=== PATIENT | female | born 1950 | race Caucasian/White ===

== ENCOUNTER 2018-09-13 10:44 | Outpatient (REF) | payer MEDICARE, MEDICAID, SELFPAY ==
[2018-09-13 21:41] LABS: ALT 32 U/L (12-78); AST 22 U/L (15-37); Albumin 3.9 g/dL (3.4-5.0); Alkaline Phosphatase 63 U/L (46-116); BUN 12 mg/dL (7-18); Bilirubin, Total 0.4 mg/dL (0.2-1.0); CREATININE 0.83 mg/dL (0.55-1.02); Calcium 9.2 mg/dL (8.5-10.1); Chloride 100 mmol/L (98-107); Cholesterol 166 mg/dL (50-200); Glucose 83 mg/dL (70-100); HDL Cholesterol 44 mg/dL (40-60); LDL CHOLESTEROL 105 mg/dL (<100); Potassium 4.5 mmol/L (3.5-5.1); Sodium 136 mmol/L (136-145); Total Protein 6.6 g/dL (6.4-8.2); Triglyceride 83 mg/dL (30-150)
== END 2018-09-13 11:04 ==
LOC: NCHCN 10:44
PROVIDERS: PCP Family Medicine; Visit Provider Nurse Practitioner Family
DX: E78.5 Hyperlipidemia, unspecified (principal)
CPT/HCPCS: 80053; 80061; 83721

== ENCOUNTER 2018-10-18 15:12 | Outpatient (REF) | payer MEDICARE, MEDICAID, SELFPAY ==
[2018-10-18 22:15] LABS: Abs Immature Grans 0.01 k/cumm (0.0-0.09); Absolute Basophil Count 0.02 k/cumm (0.0-0.2); Absolute Eosinophil Count 0.06 k/cumm (0.0-0.7); Absolute Monocyte Count 0.53 k/cumm (0.11-0.7); Basophils % 0.3; Eosinophils % 0.8; HCT 40.6 % (36.0-46.0); HGB 13.5 g/dL (12.0-15.5); Immature Grans % 0.1; Lymphocytes % 32.8; Mean Corp. HGB Concentration 33.3 g/dL (32.0-36.0); Mean Corpuscular Hemoglobin 31.3 pg (27.0-33.0); Mean Corpuscular Volume 94.2 fL (80-95); Mean Platelet Volume 12.2 fL (8.0-11.0); Platelet Count 240 x1000/uL (130-400); RBC 4.31 m/cumm (4.00-5.20); RBC Distribution Width 12.4 % (11.7-14.6); White Blood Cell Count 7.62 k/cumm (4.4-10.8)
[2018-10-18 22:28] LABS: ALT 32 U/L (12-78); AST 22 U/L (15-37); Albumin 3.9 g/dL (3.4-5.0); Alkaline Phosphatase 67 U/L (46-116); BUN 11 mg/dL (7-18); Bilirubin, Total 0.3 mg/dL (0.2-1.0); CREATININE 1.04 mg/dL (0.55-1.02); Calcium 8.9 mg/dL (8.5-10.1); Chloride 101 mmol/L (98-107); Estimated GFR 53.02 (mL/min/1.73m2); Glucose 106 mg/dL (70-100); Potassium 4.1 mmol/L (3.5-5.1); Sodium 138 mmol/L (136-145); TSH 4.18 uIU/mL (0.358-3.74); Total Protein 6.7 g/dL (6.4-8.2)
[2018-10-19 09:57] LABS: FREE T4 0.83 ng/dL (0.76-1.46)
[2018-10-20 10:21] LABS: Hepatitis C Ab w Rflx HCV PCR Negative (NEGAT)
[2018-10-20 11:02] LABS: Lyme Ab w Rflx to Lyme Confirm Negative
[2018-10-20 23:52] LABS: Anaplasma phagocytophilum Negative (Negative); B. miyamotoi PCR Negative (Negative); Babesia divergens/MO-1 Negative (Negative); Babesia duncani Negative (Negative); Babesia microti Negative (Negative); Ehrlichia chaffeensis Negative (Negative); Ehrlichia ewingii/canis Negative (Negative); Ehrlichia muris eauclairensis Negative (Negative)
== END 2018-10-18 15:32 ==
LOC: NCHCN 15:12
PROVIDERS: PCP Family Medicine; Visit Provider Nurse Practitioner Family
DX: R53.83 Other fatigue (principal); M25.50 Pain in unspecified joint; Z11.59 Encounter for screening for other viral diseases; Z20.5 Contact with and (suspected) exposure to viral hepatitis
CPT/HCPCS: 80053; 86803; 87798; 84439; 84443; 85025; 86618

== ENCOUNTER 2020-01-16 09:50 | Outpatient (REF) | payer MEDICARE, MEDICAID, SELFPAY ==
[2020-01-16 22:52] LABS: Vitamin D 25 Total 49.1 ng/ml (30-100)
== END 2020-01-16 10:10 ==
LOC: NCHCN 09:50
PROVIDERS: PCP Family Medicine; Visit Provider Nurse Practitioner Family
DX: M81.0 Age-related osteoporosis without current pathological fracture (principal)
CPT/HCPCS: 82306

== ENCOUNTER 2020-06-26 09:32 | Outpatient (REF) | payer MEDICARE, MEDICAID, SELFPAY | END 2020-06-26 09:33 | disposition home or self-care (01) | LOC: NCHCN 09:32 | PROVIDERS: PCP Family Medicine; Visit Provider Nurse Practitioner Family | DX: N39.0 Urinary tract infection, site not specified (principal) | CPT/HCPCS: 87086 ==

== ENCOUNTER 2021-02-01 11:40 | Outpatient (REF) | payer MEDICARE, MEDICAID, SELFPAY ==
--- NOTE | 2021-02-01 09:15 | SKI_PTH ---
PATIENT: Marva Rawls LOC: [facility] U#:[id number] AGE/SX: 70/F ROOM: RE02/01/[address]: Francoise Blue : 1950 BED: DIS: 02/01/2021 SPEC #: [id number] RECD: 02/01/21 13:15 STATUS: LEATHA REEleno #: [id number] ANGELINA: 02/01/21 09:[address]: Francoise Cevallos DEPT: Surgical Specimen RECD BY: Joanna Abernathy ENTERED: 02/01/21 13:16 SP TYPE: LUIS COLLIER DR: Mani Gill Tissues: 1 - SKIN BIOPSY(SHAVE/PUNCH) Procedures: SKIN LEVEL 4 Comments: [id number]
== END 2021-02-01 11:41 | disposition home or self-care (01) ==
LOC: NCHCN 11:40
PROVIDERS: PCP Family Medicine; Visit Provider Nurse Practitioner Family
DX: L30.9 Dermatitis, unspecified (principal); R21 Rash and other nonspecific skin eruption
CPT/HCPCS: 88305

== ENCOUNTER 2021-05-06 09:32 | Outpatient (REF) | payer MEDICARE, MEDICAID, SELFPAY ==
[2021-05-06 15:20] LABS: HCT 42.7 % (36.0-46.0); HGB 14.3 g/dL (11.2-15.7); MCH 31.6 pg (27.0-33.0); MCHC 33.5 % (32.0-36.0); MCV 94.3 fL (80-95); MPV 11.4 fL (8.0-11.0); Platelet Count 256 10^3/uL (130-400); RBC 4.53 10^6/uL (3.93-5.22); RDW 11.9 % (11.7-14.6); RDW-SD 41.7 fL; WBC 7.95 10^3/uL (4.4-10.8)
[2021-05-06 15:40] LABS: Hemoglobin A1C 5.8 % (<5.7)
[2021-05-06 15:51] LABS: ALT 26 U/L (14-59); AST 11 U/L (15-37); Alkaline Phosphatase 71 U/L (46-116); Anion Gap 7.4 mmol/L (3-11); BUN 9 mg/dL (7-18); Bilirubin, Total 0.4 mg/dL (0.2-1.0); CO2 29.6 mmol/L (21.0-32.0); CREATININE 0.8 mg/dL (0.55-1.02); Calcium 9.1 mg/dL (8.5-10.1); Calculated LDL 111 mg/dL (<100); Chloride 102 mmol/L (98-107); Cholesterol 184 mg/dL (<200); Glucose 104 mg/dL (74-106); HDL Cholesterol 51 mg/dL (40-60); Potassium 4.2 mmol/L (3.5-5.1); Sodium 139 mmol/L (136-145); TSH 3.54 uIU/mL (0.36-3.74); Triglyceride 112 mg/dL (<150)
== END 2021-05-06 09:33 | disposition home or self-care (01) ==
LOC: NCHCN 09:32
PROVIDERS: PCP Family Medicine; Visit Provider Nurse Practitioner Family
DX: Z00.00 Encounter for general adult medical examination without abnormal findings (principal); E78.5 Hyperlipidemia, unspecified; M81.0 Age-related osteoporosis without current pathological fracture; Z13.29 Encounter for screening for other suspected endocrine disorder; R73.03 Prediabetes
CPT/HCPCS: 80053; 80061; 85027; 83036; 84443

== ENCOUNTER 2022-05-14 07:30 | Outpatient (REF) | payer MEDICARE, SELFPAY ==
[2022-05-14 14:31] LABS: ALT 26 U/L (14-59); AST 28 U/L (15-37); Albumin 4.1 g/dL (3.4-5.0); Alkaline Phosphatase 75 U/L (46-116); Anion Gap 6.6 mmol/L (3-11); BUN 12 mg/dL (7-18); Bilirubin, Total 0.5 mg/dL (0.2-1.0); CO2 30.4 mmol/L (21.0-32.0); CREATININE 0.8 mg/dL (0.55-1.02); Calcium 9.5 mg/dL (8.5-10.1); Calculated LDL 124 mg/dL (<100); Chloride 103 mmol/L (98-107); Cholesterol 194 mg/dL (<200); Estimated GFR 79.22 (mL/min/1.73m2); Glucose 109 mg/dL (74-106); HDL Cholesterol 53 mg/dL (40-60); Potassium 4.6 mmol/L (3.5-5.1); Sodium 140 mmol/L (136-145); Total Protein 7.3 g/dL (6.4-8.2); Triglyceride 87 mg/dL (<150)
[2022-05-14 15:13] LABS: Hemoglobin A1C 5.8 % (<5.7)
== END 2022-05-14 07:31 | disposition home or self-care (01) ==
LOC: NCHCN 07:30
PROVIDERS: PCP Family Medicine; Visit Provider Nurse Practitioner Family
DX: E78.5 Hyperlipidemia, unspecified (principal); R73.03 Prediabetes; R03.0 Elevated blood-pressure reading, without diagnosis of hypertension
CPT/HCPCS: 80053; 80061; 83036

== ENCOUNTER 2022-06-05 14:48 | Outpatient (REF) | payer MEDICARE, SELFPAY | END 2022-06-05 14:49 | disposition home or self-care (01) | LOC: NCHCN 14:48 | PROVIDERS: PCP Family Medicine; Visit Provider Nurse Practitioner Family | DX: R39.9 Unspecified symptoms and signs involving the genitourinary system (principal) | CPT/HCPCS: 87086 ==

== ENCOUNTER 2023-02-23 13:35 | Outpatient (REF) | payer MEDICARE, SELFPAY ==
--- OUTSIDE RECORDS SUMMARY | 2023-02-23 13:39 | XMS_ITS | CCD ---
Author Name Unknown Address [address] [place] [address] [phone] Organization Unknown Address [address] [place] [address] [phone] Care Team Providers Care Reel System Operator Name Role Phone TICOMARIAN Mai Attending Physician [phone] Vital Signs Unknown or Not Available. Allergies Allergy Code Allergy Type Reaction Status CODEINE 2670 Drug allergy UPSET STOMACH; Nausea A ctive Procedures Unknown or Not Available. History of Immunizations Unknown or Not Available. Problems Unknown or Not Available. Results Unknown or Not Available. Active Medications Unknown or Not Available. Medications Administered During Visit Unknown or Not Available. Encounters Encounter Diagnosis Diagnosis Code Start Date Encounter for screening mamm ogram for malignant neoplasm of breast Z1231 05/30/2022 Social History Smoking Status Code Start Date End Date Former smoker [id number] 05/04/2005 Patient Decision Aids Unknown or Not Available. Discharge Instructions You were admitted to [facility] on 05/30/2022 08:32 with a principal diagnosis of Encounter for screening mammogram for malignant neoplasm of breast You were discharged from [facility] on 05/30/2022 08:32 Should you have any questions prior to discharge, please contact a member of your healthcare team. If you have left the hospital and have any questions, please contact your primary care physician. Chief Complaint and Reason For Visit Chief Complaint Date of Onset SCR Function Status Unknown or Not Available. Plan of Care Unknown or Not Available. Referral/Transition of Care Unknown or Not Available.
--- OUTSIDE RECORDS SUMMARY | 2023-02-23 13:39 | XMS_ITS | CCD ---
Author Name Unknown Address [address] [place] [address] [phone] Organization Unknown Address [address] [place] [address] [phone] Care Team Providers Care Data Administrator Name Role Phone TICO MARIAN Mai Attending Physician [phone] Vital Signs Unknown or Not Available. Allergies [...] Encounters Encounter Diagnosis Diagnosis Code Start Date Age-related osteoporosis wit hout current pathological fracture M810 02/26/2022 Social History Smoking Status Code Start Date End Date Former smoker [id number] 05/04/2005 Patient Decision Aids Unknown or Not Available. Discharge Instructions You were admitted to [facility] on 02/26/2022 07:52 with a principal diagnosis of Age-related osteoporosis without current pathological fracture You were discharged from [facility] on 02/26/2022 07:52 Should you have any questions prior to discharge, please contact a member of your healthcare team. If you have left the hospital and have any questions, please contact your primary care physician. Chief Complaint and Reason For Visit Chief Complaint Date of Onset OSTEOPOROSIS Function Status Unknown or Not Available. Plan of Care Unknown or Not Available. Referral/Transition of Care Unknown or Not Available.
[2023-02-23 17:17] LABS: Anion Gap 8.5 mmol/L (3-11); BUN 12 mg/dL (7-18); CO2 27.5 mmol/L (21.0-32.0); CREATININE 0.8 mg/dL (0.55-1.02); Calcium 9.8 mg/dL (8.5-10.1); Calculated LDL 91 mg/dL (<100); Chloride 100 mmol/L (98-107); Cholesterol 166 mg/dL (<200); Estimated GFR 78.72 (mL/min/1.73m2); Glucose 91 mg/dL (74-106); HDL Cholesterol 49 mg/dL (40-60); Potassium 4.5 mmol/L (3.5-5.1); Sodium 136 mmol/L (136-145); Triglyceride 131 mg/dL (<150)
[2023-02-23 17:39] LABS: Hemoglobin A1C 5.9 % (<5.7)
[2023-02-23 18:12] LABS: Vitamin D 25 Total 54.8 ng/mL (30-100)
== END 2023-02-23 13:36 | disposition home or self-care (01) ==
LOC: NCHCN 13:35
PROVIDERS: PCP Family Medicine; Visit Provider Nurse Practitioner Family
DX: E78.5 Hyperlipidemia, unspecified (principal); R73.03 Prediabetes; M81.0 Age-related osteoporosis without current pathological fracture; R03.0 Elevated blood-pressure reading, without diagnosis of hypertension; L82.0 Inflamed seborrheic keratosis; Z86.69 Personal history of other diseases of the nervous system and sense organs
CPT/HCPCS: 80048; 80061; 82306; 83036

== ENCOUNTER 2023-05-12 22:04 | Outpatient (REF) | payer MEDICARE, SELFPAY | END 2023-05-12 22:05 | disposition home or self-care (01) | LOC: NCHCN 22:04 | PROVIDERS: PCP Family Medicine; Visit Provider Nurse Practitioner Family | DX: N39.0 Urinary tract infection, site not specified (principal) | CPT/HCPCS: 87086 ==

== ENCOUNTER 2023-06-03 11:21 | Outpatient (REF) | payer MEDICARE, SELFPAY ==
[2023-06-03 15:04] LABS: Anion Gap 7.4 mmol/L (3-11); BUN 7 mg/dL (7-18); CO2 27.6 mmol/L (21.0-32.0); CREATININE 0.9 mg/dL (0.55-1.02); Calcium 9.8 mg/dL (8.5-10.1); Chloride 99 mmol/L (98-107); Estimated GFR 68.35 (mL/min/1.73m2); Glucose 107 mg/dL (74-106); Potassium 4.6 mmol/L (3.5-5.1); Sodium 134 mmol/L (136-145)
== END 2023-06-03 11:22 | disposition home or self-care (01) ==
LOC: NCHCN 11:21
PROVIDERS: PCP Family Medicine; Visit Provider Nurse Practitioner Family
DX: I10 Essential (primary) hypertension (principal)
CPT/HCPCS: 80048

== ENCOUNTER 2024-09-05 18:48 | Outpatient (REF) | payer MEDICARE, SELFPAY ==
[2024-09-05 21:24] LABS: HCT 40.9 % (36.0-46.0); MCH 29.6 pg (27.0-33.0); MCHC 31.8 % (32.0-36.0); MCV 93 fL (80-95); MPV 11.3 fL (8.0-11.0); Platelet Count 256 10^3/uL (130-400); RBC 4.39 10^6/uL (3.93-5.22); RDW 13.8 % (11.7-14.6); WBC 8.06 10^3/uL (4.4-10.8)
[2024-09-05 22:17] LABS: ALT 34 U/L (14-59); AST 24 U/L (15-37); Albumin 3.9 g/dL (3.4-5.0); Alkaline Phosphatase 82 U/L (46-116); Anion Gap 6.2 mmol/L (3-11); BUN 19 mg/dL (7-18); Bilirubin, Total 0.2 mg/dL (0.2-1.0); CO2 29.8 mmol/L (21.0-32.0); CREATININE 0.9 mg/dL (0.55-1.02); Calcium 9.4 mg/dL (8.5-10.1); Calculated LDL 79 mg/dL (<100); Chloride 102 mmol/L (98-107); Cholesterol 171 mg/dL (<200); Estimated GFR 67.92 (mL/min/1.73m2); Glucose 96 mg/dL (74-106); HDL Cholesterol 46 mg/dL (>or=50); Potassium 4.3 mmol/L (3.5-5.1); Sodium 138 mmol/L (136-145); Total Protein 7.2 g/dL (6.4-8.2); Triglyceride 233 mg/dL (<150)
== END 2024-09-05 18:49 | disposition home or self-care (01) ==
LOC: NCHCN 18:48
PROVIDERS: PCP Family Medicine; Visit Provider Nurse Practitioner Family
DX: I25.10 Atherosclerotic heart disease of native coronary artery without angina pectoris (principal); I10 Essential (primary) hypertension
CPT/HCPCS: 80053; 80061; 85027